=== PATIENT | female | born 1980 | race Caucasian/White ===

== ENCOUNTER → 2018-04-12 | Outpatient (REF) | payer OTHER ==
[~2018-04-12] MED LIST: CALCTAB41 PO; CHOL4POW4 PO; CVS20TAB PO; CYMB1CAP4 PO; FOLI800C PO; HYDR100C PO; LACT10SO29 PO; MAG-400T7 PO; NEUR300C PO; VITA50TA47 PO; VITMTA PO
[2018-04-12 14:19] LABS: INR 1.49; PROTHROMBIN TIME 18.3 SECONDS (12.1-14.4)
[2018-04-12 14:20] LABS: PARTIAL THROMBOPLASTIN TIME 39.1 SECONDS (25.4-37.6)
[2018-04-12 14:29] LABS: ALBUMIN 3.7 GM/DL (3.2-5.2); ALT/SGPT 25 U/L (12-78); BILIRUBIN,DIRECT 1.1 MG/DL (0.0-0.2); BILIRUBIN,TOTAL 2.9 MG/DL (0.2-1.0); BLOOD UREA NITROGEN 5 MG/DL (7-18); CREATININE FOR GFR 0.64 MG/DL (0.55-1.30); FERRITIN 12 NG/ML (8-252); GAMMA GLUTAMYLTRANSPEPTIDASE 99 U/L (5-55); GLOMERULAR FILTRATION RATE > 60.0 (>60); IRON (FE) 92 UG/DL (50-170); PERCENT SATURATION 27.2 % (13.2-45.0); TOTAL IRON BINDING CAPACITY 338 UG/DL (250-450); TOTAL PROTEIN 7.1 GM/DL (6.4-8.2)
[2018-04-13 12:37] LABS: HEPATITIS B SURFACE ANTIBODY POSITIVE (POSITIVE)
[2018-04-13 16:07] LABS: HEPATITIS B SURFACE ANTIGEN NEGATIVE (NEGATIVE)
[2018-04-13 16:35] LABS: HEPATITIS C VIRUS ABY INDEX < 0.0 INDEX (<0.8)
[2018-04-14 00:07] LABS: ANTI-MITOCHONDRIAL ANTIBODY <20.0 Units (0.0-20.0); ANTI-SMOOTH MUSCLE ANTIBODY 9 Units (0-19); ANTINUCLEAR ANTIBODIES DIRECT Negative (Negative); CERULOPLASMIN 17.3 mg/dL (19.0-39.0); HEPATITIS A IgG TOTAL Positive (Negative); HEPATITIS B CORE ANTIBODY IGG Negative (Negative); LIVER-KIDNEY MICROSOMAL ABY <20.1 Units (0.0-20.0)
== END ==
LOC: M LAB REF 13:47
PROVIDERS: ATTEND Internal Medicine Gastroenterology
DX: R11.2 Nausea with vomiting, unspecified (principal); K70.31 Alcoholic cirrhosis of liver with ascites

== ENCOUNTER → 2018-04-13 | Outpatient (CLI) | payer OTHER ==
--- NOTE | 2018-04-13 14:55 | REP ---
Clinical: Right upper quadrant pain with nausea and vomiting. Technique: Real time montez scale and color evaluation using curved array transducer. Findings: Liver demonstrates coarse echotexture along with 7 mm cyst in the right lobe. No focal hepatic lesions are otherwise identified. Color evaluation demonstrates hepatofugal flow through the main portal vein along with multiple abdominal varices and splenomegaly consistent with cirrhosis and portal hypertension. Pancreas is incompletely evaluated due to interposed bowel gas. Spleen is enlarged and measures 13.2 x 5.2 x 13.9 cm with multiple calcifications suggesting prior granulomas disease. Gallbladder demonstrates gallstones and layering gravel/sludge with wall thickening. No pericholecystic fluid or sonographic Liirano's sign elicited. No biliary ductal dilatation is appreciated and the common bile duct measures 5.2 mm diameter. Kidneys are normal in reniform shape without hydronephrosis. Right kidney measures 12.8 x 6.7 x 6.7 cm with mild pelviectasis. Left kidney measures 12.2 x 5.0 x 6.1 cm. The abdominal aorta is normal and measures 2.1 cm maximal diameter. No ascites noted within the abdomen/pelvis. Impression: 1. Findings consistent with cirrhosis and portal hypertension including hepatofugal flow through the dilated main portal vein, splenomegaly, and scattered portosystemic varices. 2. Cholelithiasis. Associated gallbladder wall thickening likely chronic related to cirrhosis. Electronically Signed by Mariano Kim MD 04/13/2018 02:47 P
== END ==
LOC: M RAD 09:09
PROVIDERS: ATTEND Internal Medicine Gastroenterology
DX: K76.6 Portal hypertension (principal); K80.20 Calculus of gallbladder without cholecystitis without obstruction; R11.2 Nausea with vomiting, unspecified

== ENCOUNTER → 2018-04-13 | Outpatient (REF) | payer OTHER | LOC: M LAB REF 10:53 | PROVIDERS: ATTEND Internal Medicine Gastroenterology | DX: R11.2 Nausea with vomiting, unspecified (principal); K70.31 Alcoholic cirrhosis of liver with ascites ==

== ENCOUNTER 2018-05-11 12:45 | Day surgery (SDC) | payer OTHER ==
[~2018-05-11] VITALS: Ht 170.2 cm; Wt 73.4 kg
[~2018-05-11 12:45] MED LIST changes: +IRON27TA2 PO; +NS 1,000 ML IV ONE
[2018-05-11] MEDS ORDERED: LIDOCAINE 2% INJ 100 MG/5 ML SDV (FOR ANES.) As Ordered ONE (14:54)
[2018-05-11] MEDS ORDERED: PROPOFOL 200 MG/20 ML VIAL As Ordered ONE (14:54)
[2018-05-11 15:24] VITALS: BP 107/58
--- NOTE | 2018-05-11 16:24 | ROOR ---
Patient Name: Ananya Veliz Procedure Date: 05/11/2018 2:55 PM Date of : 1980 Age: 37 Room: [facility] Gender: Female Note Status: Finalized Procedure: Upper GI endoscopy Indications: Cirrhosis with suspected esophageal varices, Portal hypertension with UGI bleeding rule out esophageal varices Providers: Carlos Polk MD Referring MD: EZEQUIEL MOE MD Requesting Provider: Medicines: Monitored Anesthesia Care Complications: No immediate complications. Procedure: Pre-Anesthesia Assessment: - Prior to the procedure, a History and Physical was performed, and patient medications and allergies were reviewed. The patient is competent. The risks and benefits of the procedure and the sedation options and risks were discussed with the patient. All questions were answered and informed consent was obtained. Patient identification and proposed procedure were verified by the physician, the nurse and the anesthesiologist in the procedure room. Mental Status Examination: alert and oriented. Airway Examination: normal oropharyngeal airway and neck mobility. Respiratory Examination: clear to auscultation. CV Examination: normal. Prophylactic Antibiotics: The patient does not require prophylactic antibiotics. Prior Anticoagulants: The patient has taken no previous anticoagulant or antiplatelet agents. ASA Grade Assessment: III - A patient with severe systemic disease. After reviewing the risks and benefits, the patient was deemed in satisfactory condition to undergo the procedure. The anesthesia plan was to use monitored anesthesia care (MAC). Immediately prior to administration of medications, the patient was re-assessed for adequacy to receive sedatives. The heart rate, respiratory rate, oxygen saturations, blood pressure, adequacy of pulmonary ventilation, and response to care were monitored throughout the procedure. The physical status of the patient was re-assessed after the procedure. The upper GI endoscopy was accomplished without difficulty. The patient tolerated the procedure well. The Endoscope was introduced through the mouth, and advanced to the second part of duodenum. Findings: The Z-line was regular and was found 40 cm from the incisors. Two columns of grade I, small (< 5 mm) varices were found in the middle third of the esophagus and in the lower third of the esophagus,. No red stacy signs were present. Patchy mild inflammation characterized by erythema and granularity was found in the gastric body and in the gastric antrum. Biopsies were taken with a cold forceps for Helicobacter pylori testing. Verification of patient identification for the specimen was done by the physician and nurse using the patient's name, date and medical record number. Estimated blood loss was minimal. The duodenal bulb and second portion of the duodenum were normal. Impression: - Z-line regular, 40 cm from the incisors. - Grade I and small (< 5 mm) esophageal varices. - Gastritis. Biopsied. - Normal duodenal bulb and second portion of the duodenum. Recommendation: - Patient has a contact number available for emergencies. The signs and symptoms of potential delayed complications were discussed with the patient. Return to normal activities tomorrow. Written discharge instructions were provided to the patient. - Resume previous diet. - Continue present medications. - Await pathology results. - Repeat upper endoscopy in 2 years for surveillance. 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 - Return to GI clinic in [facility] (address [address], [address], [place] [address]) in 4 -- 6 weeks. Please call GI clinic @ [phone] for apppointment date and time. - Return to primary care physician. Carlos Polk MD Carlos Polk MD 05/11/2018 4:24:16 PM Electronically signed by Carlos Polk MD Number of Addenda: 0 Note Initiated On: 05/11/2018 2:35 PM Estimated Blood Loss: Estimated blood loss was minimal.
== END 2018-05-11 15:33 | disposition home or self-care (01) ==
LOC: M OPP 12:45 → EDUNIT# 12:50 → M OPP 15:33
PROVIDERS: ATTEND Internal Medicine Gastroenterology
DX: I85.10 Secondary esophageal varices without bleeding (principal); K76.6 Portal hypertension; K74.60 Unspecified cirrhosis of liver; K29.70 Gastritis, unspecified, without bleeding; K92.2 Gastrointestinal hemorrhage, unspecified; Z79.899 Other long term (current) drug therapy

== ENCOUNTER → 2018-07-04 | Outpatient (CLI) | payer OTHER ==
[~2018-07-04] MED LIST changes: -CVS20TAB PO; -NS 1,000 ML IV ONE; +OMEP20TA9 PO
--- NOTE | 2018-07-05 14:18 | DEXA ---
AP SPINE L1 - L4 1.107 -0.7 -0.7 LT FEMUR TOTAL 0.955 -0.4 -0.2 LT NECK 0.941 -0.7 -0.4 RT FEMUR TOTAL 0.917 -0.7 -0.6 RT NECK 0.898 -1.0 -0.7 TOTAL BODY TOTAL OTHER COMMENTS: Normal bone densitometry of the spine. Normal bone densitometry of the left hip. There is low bone density of the right hip. FOLLOW-UP: Recommendation for the next bone density exam: 2 years. EZE
== END ==
LOC: M WHC 08:05
PROVIDERS: ATTEND Family Medicine
DX: M89.9 Disorder of bone, unspecified (principal)

== ENCOUNTER → 2018-07-24 | Outpatient (REF) | payer OTHER | LOC: M LAB LCGH 13:33 | PROVIDERS: ATTEND Nurse Practitioner Family | DX: D48.5 Neoplasm of uncertain behavior of skin (principal) ==

== ENCOUNTER → 2018-07-25 | Outpatient (CLI) | payer OTHER ==
[2018-07-25 09:02] LABS: BASO % 0.8 % (0.0-1.0); EOS # 0.1 10^3/uL (0.0-0.50); EOS % 2.3 % (0.0-3.0); HEMATOCRIT 27.5 % (36.0-47.0); HEMOGLOBIN 9.1 g/dl (12.0-15.5); LYMPH # 1.8 10^3/uL (1.5-4.5); LYMPH % 45.2 % (24.0-44.0); MEAN CORPUSCULAR HEMOGLOBIN 29.2 pg (27.0-33.0); MEAN CORPUSCULAR HGB CONC 33.1 g/dl (32.0-36.5); MEAN CORPUSCULAR VOLUME 88.1 fl (80.0-96.0); MONO # 0.3 10^3/uL (0.0-0.8); MONO % 6.7 % (0.0-5.0); NEUTROPHILS # 1.7 10^3/uL (1.8-7.7); NEUTROPHILS % 44.7 % (36.0-66.0); RED BLOOD COUNT 3.12 10^6/uL (4.00-5.40); WHITE BLOOD COUNT 3.9 10^3/uL (4.0-10.0)
[2018-07-25 09:06] LABS: PLATELET COUNT, AUTOMATED 79 10^3/uL (150-450)
[2018-07-25 09:25] LABS: ALBUMIN 3.3 GM/DL (3.2-5.2); ALT/SGPT 28 U/L (12-78); BILIRUBIN,DIRECT 0.5 MG/DL (0.0-0.2); BILIRUBIN,TOTAL 1.5 MG/DL (0.2-1.0); BLOOD UREA NITROGEN 8 MG/DL (7-18); CALCIUM LEVEL 8.4 MG/DL (8.5-10.1); CARBON DIOXIDE LEVEL 23 MEQ/L (21-32); CHLORIDE LEVEL 114 MEQ/L (98-107); CREATININE FOR GFR 0.61 MG/DL (0.55-1.30); GLOMERULAR FILTRATION RATE > 60.0 (>60); GLUCOSE, FASTING 86 MG/DL (70-100); SODIUM LEVEL 145 MEQ/L (136-145); TOTAL PROTEIN 6.3 GM/DL (6.4-8.2)
--- NOTE | 2018-07-25 18:42 | REP ---
Clinical: Cirrhosis. Abdominal pain. Technique: Real time montez scale and color evaluation using curved array transducer. Findings: The liver demonstrates coarsened increased echo texture consistent with hepatocellular disease and cirrhosis along with fatty changes. A simple cyst in the right lobe measures 10 x 6 x 6 mm. Color Doppler evaluation demonstrates reversed flow in the main portal vein with portal venous varices and recanalized umbilical vein. Gallbladder demonstrates sludge and gravel with mildly prominent wall measuring 3.2 mm, but no sonographic Liriano's sign or pericholecystic fluid. No biliary ductal dilatation is appreciated and the common bile duct measures 5.3 mm diameter. The pancreas is incompletely evaluated due to interposed bowel gas but visualized portions appear normal. Splenomegaly is appreciated with scattered calcified granuloma. Spleen measures 12.4 x 7.0 x 14.5 cm. Bilateral kidneys are normal in reniform shape with mild pelviectasis noted. Right kidney measures 11.8 x 4.8 x 6.5 cm. Left kidney measures 12.5 x 5.0 x 5.7 cm. Abdominal aorta is limited but visualized portions measure up to 2.5 cm diameter. No ascites. Impression: 1. Findings consistent with cirrhosis and portal venous hypertension including, reversed flow in the portal vein, splenomegaly and varices. 2. Cholelithiasis. Electronically Signed by Mariano Kim MD 07/25/2018 06:33 P
== END ==
LOC: M RAD 07:22
PROVIDERS: ATTEND Internal Medicine Gastroenterology
DX: K74.60 Unspecified cirrhosis of liver (principal); K76.6 Portal hypertension; K80.20 Calculus of gallbladder without cholecystitis without obstruction; R16.1 Splenomegaly, not elsewhere classified